=== PATIENT | female | born 1980 | race Two or more races ===

== ENCOUNTER 2018-08-21 19:19 | Emergency (ER) | payer OTHER ==
[~2018-08-21] VITALS: Ht 165.1 cm; Wt 84.8 kg
[2018-08-21] MEDS ORDERED: cloNIDine HCL 0.1 MG TAB ONE (19:56)
[2018-08-21] MEDS ORDERED: cloNIDine HCL 0.1 MG TAB PO ONE (20:15)
[2018-08-21] MEDS ORDERED: cloNIDine 0.1 mg/24hr 7 DAY PATCH TD ONE (20:15)
[2018-08-21 22:45] LABS: Basophils # (auto) 0.1 uL; Basophils % (auto) 0.5 % (0.0-2.0); Eosinophils # (auto) 0 uL; Eosinophils % (auto) 0.3 % (0.0-7.0); Hemoglobin 13.7 g/dL (12.2-16.2); Lymphocytes # (auto) 1.6 uL; Lymphocytes % (auto) 11.3 % (10.0-50.0); Mean Corpuscular Hemoglobin 27.7 pg (28.0-32.0); Mean Corpuscular Hgb Conc. 33.5 g/dL (32.0-36.0); Mean Corpuscular Volume 82.8 fL (80.0-100.0); Monocytes # (auto) 0.4 uL; Monocytes % (auto) 2.7 % (0.0-12.0); Neutrophils # (auto) 11.9 uL; Neutrophils % (auto) 85.2 % (37.0-80.0); Nucleated Red Blood Cells % 0.1 %; Platelet Count (auto) 353 10^3/uL (140-450); Red Blood Cells 4.95 10^6/uL (4.0-5.20); Red Cell Distribution Width 13.8 % (11.8-14.3)
[2018-08-21 23:00] LABS: Albumin 4.1 g/dL (3.4-5.0); Calcium 9.1 mg/dL (8.5-10.1); Potassium 3.8 mmol/L (3.5-5.1)
[2018-08-21 23:02] LABS: Bilirubin, Total 0.3 mg/dL (0.2-1.0); Total Protein 8.3 g/dL (6.4-8.2)
[2018-08-22] MEDS ORDERED: SODIUM CHLORIDE 0.9% 1,000 ML IV ONE (04:26)
[2018-08-22] MEDS ORDERED: ACETAMINOPHEN 500 MG TAB PO ONE (04:30)
[2018-08-22] MEDS ORDERED: ONDANSETRON ODT 4 MG TAB PO ONE (04:45)
[2018-08-22] MEDS ORDERED: cefTRIAXone 1GM/50ML D5W 50 ML IV ONE (04:45)
[2018-08-22 06:04] VITALS: BP 122/72
== END 2018-08-22 06:53 | disposition home or self-care (01) ==
LOC: ER 19:19
DX: J32.9 Chronic sinusitis, unspecified (principal); I10 Essential (primary) hypertension; R11.10 Vomiting, unspecified; X32.XXXA Exposure to sunlight, initial encounter; Y93.89 Activity, other specified; Y99.0 Civilian activity done for income or pay; Y92.89 Other specified places as the place of occurrence of the external cause
CPT/HCPCS: 36415; 70450; 80053; 85025; 94761; 96365; 99284; J0696; J7030